=== PATIENT | male | born 1980 | race Two or more races ===

== ENCOUNTER → 2016-12-12 04:10 | Emergency (ER) | payer OTHER ==
[2016-12-12 03:09] LABS: INFLUENZA A NEG (NEG); INFLUENZA B NEG (NEG)
[~2016-12-12 04:10] MED LIST: BENADRYL25 MG PO; PREDNISONE10 MG/DOSE PO
== END | disposition home or self-care (01) ==
LOC: CED 04:10
DX: Z53.21 Procedure and treatment not carried out due to patient leaving prior to being seen by health care provider (principal)
CPT/HCPCS: 87804